=== PATIENT | female | born 1990 | race Caucasian/White ===

== ENCOUNTER 2017-12-02 01:24 | Emergency (ER) | payer OTHER ==
[2017-12-02] MEDS ORDERED: MORPHINE SULFATE 2 MG/ML SYRINGE IM STA (02:16)
[2017-12-02] MEDS ORDERED: ORPHENADRINE 30 MG/ML 2 ML VIAL IM STA (02:16)
--- NOTE | 2017-12-02 02:21 | ED ---
General Adult HPI - General Chief complaint: Extremity Problem,Nontraumatic Stated complaint: shoulder/neck pain Time Seen by Provider: 12/02/17 01:59 Source: patient, RN notes reviewed Mode of arrival: ambulatory Limitations: no limitations - History of Present Illness Initial comments: Patient 27-year-old female presented to the emergency room today with a chief complaint of right-sided neck pain. Patient states that she woke up yesterday with some pain to the right side of the neck. She states that she was cleaning the house doing some sweeping and mopping. She states she went to bed and approximately 2 hours woke up with increased pain to the right side. States worse with rotation to the right. Patient denies any injury or trauma to the area. Denies any radicular pain. Denies any other complaints or symptoms. She does much took ibuprofen approximately 2 hours ago Patient denies any recent fever, chills, shortness of breath, chest pain, back pain, abdominal pain , nausea or vomiting, numbness or tingling, dysuria or hematuria, constipation or diarrhea, headaches or visual changes, or any other complaints. - Related Data Previous Rx's Medication Instructions Recorded Ibuprofen [Motrin] 800 mg PO Q6HR #30 tab 12/02/17 Orphenadrine [Norflex] 100 mg PO Q12H #20 tablet.er 12/02/17 Allergies Allergy/AdvReac Type Severity Reaction Status Date / Time Penicillins Allergy Rash/Hives Verified 12/02/17 01:31 Review of Systems ROS Statement: Those systems with pertinent positive or pertinent negative responses have been documented in the HPI. ROS Other: All systems not noted in ROS Statement are negative. Past Medical History Past Medical History: No Reported History History of Any Multi-Drug Resistant Organisms: None Reported Past Surgical History: No Surgical Hx Reported Past Psychological History: No Psychological Hx Reported Smoking Status: Never smoker Past Alcohol Use History: Occasional Past Drug Use History: None Reported General Exam - General Exam Comments Initial Comments: General: The patient is awake and alert, in no distress, and does not appear acutely ill. Eye: Pupils are equal, round and reactive to light, extra-ocular movements are intact. No nystagmus. There is normal conjunctiva bilaterally. No signs of icterus. Ears, nose, mouth and throat: There are moist mucous membranes and no oral lesions. Neck: The neck is supple, there is no tenderness or JVD. Cardiovascular: There is a regular rate and rhythm. No murmur, rub or gallop is appreciated. Respiratory: Lungs are clear to auscultation, respirations are non-labored, breath sounds are equal. No wheezes, stridor, rales, or rhonchi. Musculoskeletal: Patient's pain reproducible with rotation of the neck to the right. Mild tenderness in the trapezius area. Strength 5/5. Sensation intact. Pulses equal bilaterally 2+. Neurological: A&O x 3. CN II-XII intact, There are no obvious motor or sensory deficits. Coordination appears grossly intact. Speech is normal. Skin: Skin is warm and dry and no rashes or lesions are noted. Psychiatric: Cooperative, appropriate mood & affect, normal judgment. Limitations: no limitations Course Vital Signs 12/02/17 01:27 Temperature 97.6 F Pulse Rate 94 Respiratory 20 Rate Blood Pressure 127/81 O2 Sat by Pulse 100 Oximetry Medical Decision Making - Medical Decision Making Patient pain reproducible with movements. No intrarenal trauma. Patient states this started when she woke up yesterday. Symptoms are consistent with musculoskeletal type pain. Will be given dose of morphine and Norflex here in the emergency room. She'll be discharged on continued on anti-inflammatories and muscle relaxers. She is advised that muscle relaxers may make her drowsy. Advised follow-up with the family doctor next 2 days returning if symptoms increase worsen. Disposition Clinical Impression: Torticollis Disposition: HOME SELF-CARE Condition: Good Instructions: Spasmodic Torticollis (ED) Additional Instructions: Please use medication as discussed. Please follow-up with family doctor in the next 2 days of symptoms have not improved. Please return to emergency room if the symptoms increase or worsen or for any other concerns. Prescriptions: Ibuprofen [Motrin] 800 mg PO Q6HR #30 tab Orphenadrine [Norflex] 100 mg PO Q12H #20 tablet.er Is patient prescribed a controlled substance at d/c from ED?: No Referrals: None,Stated [Primary Care Provider] - 1-2 days Katy Newman MD [STAFF PHYSICIAN] - 1-2 days Time of Disposition: 02:18
[2017-12-02 02:51] VITALS: BP 120/68; PULSE 68; RESP 18; TEMP 97.7
== END 2017-12-02 02:47 | disposition home or self-care (01) ==
LOC: EC 01:24
DX: M43.6 Torticollis (principal); Z88.0 Allergy status to penicillin
CPT/HCPCS: 99283; 96372 ×2; J2360; J2270